=== PATIENT | female | born 1965 | race American Indian/Alaskan Native ===

== ENCOUNTER 2021-06-01 07:36 | Day surgery (SDC) | payer BC ==
[2021-06-01] MEDS ORDERED: SODIUM CHLORIDE 0.9% 500 ML 500 ML IV SCH (09:00)
[2021-06-01 09:03] LABS: Basophils % (Auto) 0.6 % (0.0-1.8); Eosinophils # (Auto) 0.1 K/mm3 (0.0-0.4); Eosinophils % (Auto) 1.5 % (0.0-4.3); Hematocrit 39.3 % (30.3-42.9); Hemoglobin 13.4 gm/dl (10.1-14.3); Lymphocytes # (Auto) 1.8 K/mm3 (1.2-5.4); Lymphocytes % (Auto) 41.9 % (13.4-35.0); Mean Corpuscular HGB Conc 34 % (30-34); Mean Corpuscular Volume 87 fl (79-97); Monocytes # (Auto) 0.4 K/mm3 (0.0-0.8); Monocytes % (Auto) 8.4 % (0.0-7.3); Platelet Count 254 K/mm3 (140-440); Red Blood Count 4.51 M/mm3 (3.65-5.03); Red Cell Distribution Width 14.6 % (13.2-15.2)
[2021-06-01 09:15] LABS: BUN/Creatinine Ratio 17; Blood Urea Nitrogen 15 mg/dL (7-17); Calcium 9.7 mg/dL (8.4-10.2); Hemolysis Index 53
[2021-06-01 09:38] LABS: INR 0.85 (0.87-1.13)
[2021-06-01] MEDS ORDERED: ASPIRIN 81 MG TAB CHEW PO SCH (10:00)
[2021-06-01] MEDS ORDERED: HEPARIN/NS 5000 UNIT/500ML 1,000 ML IR ONE (10:34)
[2021-06-01] MEDS ORDERED: HEPARIN 10,000 UNITS/10 ML VIAL ONE (10:34)
[2021-06-01] MEDS ORDERED: LIDOCAINE (1%) 10 MG/1 ML VIAL 20 ML MDV ONE (10:35)
[2021-06-01] MEDS ORDERED: NITROGLYCERIN SYRINGE 0 ML ONE (10:35)
[2021-06-01] MEDS ORDERED: diphenhydrAMINE 50 MG/ML VIAL ONE (10:36)
[2021-06-01] MEDS ORDERED: HYDROCORTISONE SOD SUCC 100 MG/2 ML VIAL ONE (10:36)
[2021-06-01] MEDS ORDERED: MIDAZOLAM 2 MG/2 ML INJ ONE (10:59)
[2021-06-01] MEDS ORDERED: fentaNYL 100 MCG/2 ML INJ ONE (10:59)
[2021-06-01] MEDS ORDERED: FAMOTIDINE 20 MG/2 ML INJ IV NR (11:04)
[2021-06-01] MEDS ORDERED: HYDROCORTISONE SOD SUCC 100 MG/2 ML VIAL IV ONE (11:05)
[2021-06-01] MEDS ORDERED: diphenhydrAMINE 50 MG/ML VIAL IV ONE (11:06)
[2021-06-01] MEDS ORDERED: FAMOTIDINE 20 MG/2 ML INJ IV ONE ×2 (11:08→11:13)
[2021-06-01] MEDS ORDERED: fentaNYL 100 MCG/2 ML INJ IV ONE ×3 (11:14→11:51)
[2021-06-01] MEDS ORDERED: MIDAZOLAM 2 MG/2 ML INJ IV ONE ×3 (11:14→11:51)
[2021-06-01] MEDS ORDERED: LIDOCAINE (1%) 10 MG/1 ML VIAL 20 ML MDV INFILTRATI ONE ×2 (11:15→11:32)
--- NOTE | 2021-06-01 12:17 | Discharge Summary ---
Short Stay Discharge Plan Activity: advance as tolerated Weight Bearing Status: Partial Weight Bearing Diet: low fat, low cholesterol, low salt Wound: keep clean and dry Special Instructions: no heavy lifting (3 days) Follow up with: JAY SENA MD [Primary Care Provider] - 7 Days PEBBLES JUARES MD [Staff Physician] - 7 Days
[2021-06-01] MEDS ORDERED: traMADol 50 MG TAB PO PRN (12:30)
[2021-06-01] MEDS ORDERED: SODIUM CHLORIDE 0.9% 1000 ML 1,000 ML IV SCH (12:30)
[2021-06-01 15:07] VITALS: BP 125/78
--- NOTE | 2021-06-02 17:55 | Electrocardiograph Report ---
[facility] Test Date: 2021-06-01 Test Time: 08:04:33 Pat Name: SHYLA TIMMONS Department: Room: Gender: F Dinker: MAGO : 1965 Requested By: RIC JUARES Order Number: [id number] Reading MD: Ric Juares Measurements Intervals [place] Rate: 67 P: 63 [place]: 179 QRS: 13 QRSD: 91 T: 29 QT: 403 QTc: 427 Interpretive Statements Sinus rhythm No previous ECG available for comparison Electronically Signed On 06-02-2021 17:55:35 EDT by Ric Juares
--- NOTE | 2021-06-02 20:15 | Cardiac Catherization Report ---
DATE OF SERVICE: 06/01/2021 REASON FOR PROCEDURE: The patient is a 55-year-old woman with exertional dyspnea, who reports shortness of breath on climbing stairs, symptoms persisted despite a negative exercise thallium stress test, prompted a recommendation for cardiac catheterization. PROCEDURES: 1. Right heart catheterization. 2. Left heart catheterization. 3. Selective left and right coronary angiography. 4. Left ventricular angiography. 5. Sedation time start 11:31, end 11:50. DESCRIPTION OF PROCEDURE: The patient was prepped and draped in a sterile fashion after informed consent. The right femoral artery and vein were both entered using Seldinger technique. A 6-Danish sheath was inserted into the artery and an 8-Danish sheath in the vein. A Charleston-Klever catheter was then advanced to the pulmonary artery position. A pigtail catheter was advanced in the left ventricle. Cardiac output was measured using the thermodilution method. Simultaneous left and right heart filling pressures were then measured. The Charleston-Klever catheter was then withdrawn and right heart pressures recorded on pullback. We then performed a left ventricular angiography, following which the pigtail catheter was withdrawn across the aortic valve and transaortic gradient recorded. Finally, selective left and right coronary angiography was performed using #4 left Kina and a #4 right Kina. The catheters were then withdrawn, sheaths removed, hemostasis achieved over the arterial site using an Angio-Seal device and over the venous site using manual compression. The patient was returned to the postprocedure unit in stable condition. There were no complications. FINDINGS: HEMODYNAMICS: The mean right atrial pressure was 18. Right ventricular pressure was 40/20. Pulmonary artery pressure was 40/23. The mean pulmonary artery wedge pressure was 20. Left ventricular end-diastolic pressure was 23. Ascending aortic pressure was 140/79. There was no significant pressure gradient on pullback across the aortic valve. Cardiac output was 4.7 liters per minute. CORONARY ANGIOGRAPHY: There was mild ostial narrowing of the left main coronary artery, otherwise this vessel, the left anterior descending artery and its diagonal branches were angiographically normal. The circumflex artery and its obtuse marginal branches were also angiographically normal. The right coronary artery was dominant and similarly angiographically normal. There was very mild left ventricular systolic dysfunction with left ventricular ejection fraction estimated around 45-50%. CONCLUSION: 1. Mild to moderate increase in left heart filling pressures. 2. Moderate to severe increase in right heart filling pressures, mild pulmonary hypertension. 3. Essentially angiographically normal coronary arteries. 4. Very mild left ventricular systolic dysfunction with ejection fraction 45-50%. RECOMMENDATIONS: Risk factor modification. Consider pulmonary assessment of shortness of breath and pulmonary hypertension. TID: [id number] RECEIPT: [id number] MARTY/KATHYA
== END 2021-06-01 15:38 | disposition home or self-care (01) ==
LOC: CATHLABREC 07:36
PROVIDERS: ATTEND Internal Medicine Cardiovascular Disease
DX: R06.09 Other forms of dyspnea (principal); R06.02 Shortness of breath; R94.39 Abnormal result of other cardiovascular function study; R94.31 Abnormal electrocardiogram [ECG] [EKG]; I10 Essential (primary) hypertension; K21.9 Gastro-esophageal reflux disease without esophagitis; Z91.013 Allergy to seafood; Z91.040 Latex allergy status; Z88.8 Allergy status to other drugs, medicaments and biological substances; Z79.899 Other long term (current) drug therapy; Z98.890 Other specified postprocedural states
CPT/HCPCS: 36415; 80048; 85025; 85610; 93005; 93460; 99156; C1760; C1894; J1200; J1644; J1720; J2250; J3010; J3490; J7040; J1815; Q9967